=== PATIENT | male | born 1950 | race Caucasian/White ===

== ENCOUNTER → 2018-07-30 | Outpatient (CLI) | payer MEDICARE ==
[~2018-07-30] MED LIST: ASPI-496 PO; IBUP200T49 PO; PHEN100C PO; SIMV20TA3 PO
== END | disposition home or self-care (01) ==
LOC: CFH 11:37
PROVIDERS: ATTEND Family Medicine
DX: M47.816 Spondylosis without myelopathy or radiculopathy, lumbar region (principal); M48.061 Spinal stenosis, lumbar region without neurogenic claudication
CPT/HCPCS: 72110

== ENCOUNTER 2018-12-31 11:33 | Outpatient (CLI) | payer MEDICARE | END 2018-12-31 23:59 | disposition home or self-care (01) | LOC: CARD 11:33 | PROVIDERS: ATTEND Family Medicine | DX: R56.9 Unspecified convulsions (principal); Z86.69 Personal history of other diseases of the nervous system and sense organs | CPT/HCPCS: 95819 ==

== ENCOUNTER 2019-08-22 09:25 | Outpatient (CLI) | payer MEDICARE ==
[~2019-08-22 09:25] MED LIST changes: +SIMV20TA19 PO; -SIMV20TA3 PO
== END 2019-08-22 23:59 | disposition home or self-care (01) ==
LOC: CFH 09:25
PROVIDERS: ATTEND Psychiatry & Neurology Neurology
DX: G31.89 Other specified degenerative diseases of nervous system (principal); E78.5 Hyperlipidemia, unspecified
CPT/HCPCS: 70551; 95819